=== PATIENT | female | born 1975 | race Caucasian/White ===

== ENCOUNTER 2020-09-17 15:37 | Emergency (ER) | payer OTHER ==
[~2020-09-17] VITALS: Ht 160 cm; Wt 59.0 kg
[2020-09-17 15:46] VITALS: BP 117/56; Ht 160 cm; Wt 59.0 kg
[2020-09-17 17:28] LABS: BASOPHIL % 0.7 % (0.2-1.3); PLATELET COUNT 318 x10^3mcL (179-408)
[2020-09-17 17:36] LABS: RED CELL DISTRIBUTION WIDTH 20.6 % (12.3-17.7)
[2020-09-17 18:08] LABS: CALCIUM 9.6 mg/dL (8.5-10.1); CARBON DIOXIDE 26.7 mmol/L (21-32); CHLORIDE SERUM 103 mmol/L (98-107); CREATININE SERUM 0.6 mg/dL (0.6-1.0); GFR1 > 60 mL/min; GLUCOSE SERUM 99 mg/dL (74-106); POTASSIUM SERUM 3.7 mmol/L (3.5-5.1); SODIUM SERUM 141 mmol/L (136-145)
[2020-09-17 18:19] LABS: ALBUMIN 4.5 g/dL (3.4-5.0); ALKALINE PHOSPHATASE 57 U/L (46-116); ALT/SGPT 15 U/L (14-59); AST/SGOT 12 U/L (15-37); BILIRUBIN TOTAL 0.61 mg/dL (0.20-1.00); ovalocyte/elliptocyte 2+; rbc morphology (normal/abnorm) ABNORMAL (NORMAL)
[2020-09-17 18:21] LABS: TOTAL PROTEIN, SERUM 8.8 g/dL (6.4-8.2)
== END 2020-09-17 19:30 | disposition home or self-care (01) ==
LOC: ED 15:37
PROVIDERS: Student in an Organized Health Care Education/Training Program
DX: R42 Dizziness and giddiness (principal); Z88.0 Allergy status to penicillin; D64.9 Anemia, unspecified
CPT/HCPCS: 36415; 83880